=== PATIENT | male | born 1955 | race Caucasian/White ===

== ENCOUNTER 2017-08-25 07:57 | Day surgery (SDC) | payer OTHER ==
[2017-08-25] MEDS ORDERED: NA CHLORIDE 0.9% 1,000 ML ONE ×2 (08:13→10:58)
[2017-08-25] MEDS ORDERED: CEFAZOLIN/SWI 1gm 1 GM/10 ML SYR ONE (08:14)
[2017-08-25] MEDS ORDERED: BUPIVACAINE 0.5% Inj,MDV 50 mL VIAL ONE (08:21)
[2017-08-25 08:27] LABS: Absolute Lymphocytes (CBC) 1.1 K/uL (0.7-4.9); Absolute Monocytes 0.5 K/uL (0.1-1.3); Basophils % 0.5 % (0-1.3); Hematocrit 28.1 % (39.6-49.0); Lymphocytes % 16.1 % (15.3-44.8); MCH 28.4 pg (27.0-35.0); MCV 83.8 fL (80-100); MPV 7.1 fL (7.6-11.3); Monocytes % 6.8 % (3.3-12.3); RBC Red Blood Cell Count 3.35 M/uL (4.33-5.43)
--- NOTE | 2017-08-25 08:43 | RAD REPORT ---
EXAM DESCRIPTION: Elier Silva (2 Views)08/25/2017 8:34 am CLINICAL HISTORY: Hypertension/preop COMPARISON: None FINDINGS: The lungs appear clear of acute infiltrate. The heart is normal size IMPRESSION: No acute abnormalities displayed
[2017-08-25] MEDS ORDERED: MIDAZOLAM HCL 2 MG/2 ML INJ ONE (08:51)
[2017-08-25] MEDS ORDERED: PROPOFOL 200 MG/20 ML VIAL IV ONE (08:51)
[2017-08-25] MEDS ORDERED: FENTANYL CITR 100 MCG/2 ML ONE (08:51)
[2017-08-25] MEDS ORDERED: ONDANSETRON HCL 40 MG/20 ML VIAL ONE (09:30)
--- NOTE | 2017-08-25 10:03 | EKG ---
Test Date: 2017-08-25 Test Time: 08:03:51 Padded Products Finisher: ALF MEASUREMENT RESULTS: Intervals: Rate: 79 PA: 180 QRSD: 80 QT: 376 QTc: 431 [place]: P: 32 PA: 180 QRS: -6 T: 50 INTERPRETIVE STATEMENTS: Sinus rhythm with premature atrial complexes Otherwise normal ECG Compared to ECG 05/18/2017 13:48:43 Atrial premature complex(es) now present Sinus tachycardia no longer present Electronically Signed On 08-25-17 10:03:19 CDT by Malachi Padilla
[2017-08-25] MEDS: MEPERIDINE HCL 50 MG/ML AMP ONE ×4 (10:20→10:35)
[2017-08-25] MEDS: LABETALOL HCL 100 MG/20 ML ONE ×3 (10:30→10:50)
[2017-08-25 13:04] VITALS: O2SAT 100
[2017-08-25 13:38] VITALS: TEMP 97.1
--- NOTE | 2017-08-25 13:49 | RAD REPORT ---
EXAM DESCRIPTION: CT - Abdomen Pelvis W Contrast - 08/25/2017 1:22 pm CLINICAL HISTORY: Bilateral groin abscess, possible intraperitoneal extension COMPARISON: MRI and CT studies of the pelvis and right leg May 2017 TECHNIQUE: Biphasic, helical CT imaging of the abdomen and pelvis was performed following 100 ml non -ionic IV contrast. Oral contrast was given. All CT scans are performed using dose optimization technique as appropriate and may include automated exposure control or mA/KV adjustment according to patient size. FINDINGS: No suspicious findings in the lung bases. The liver, spleen, and pancreas show no focal findings. Liver shows a mild fatty infiltration pattern . No gallbladder or biliary tree abnormality. Symmetric renal function is seen with no hydronephrosis or suspicious renal mass. No pyelonephritis o r acute renal parenchymal process. A small 15 millimeter right adrenal mass is present. This is proba josue an incidental adenoma. This is unchanged over the short interval since May. No urinary bladd er abnormality. No dilated bowel loops or bowel wall thickening. No acute GI process identifiable. Prominence of the colon aranda at the hepatic flexure and ascending colon is believed to be from incomplete distention a nd peristalsis. Colitis or colon mass is not suspected. Within the peritoneal space there is no free air, free fluid or inflammatory stranding. No mass or b ulky lymphadenopathy. A very small fat only umbilical hernia is present. No suspicious bony findings. Fluid and inflammatory stranding is present. Postsurgical changes are noted from bilateral groin absc ess drainage. Each of the groin abscess is extend posteriorly and medially to abut the pubic symphysi s. There is fluid with a rim or rind at the pubic symphysis. Several small bone fragments are soft ti ssue calcifications present. No ashley destruction of the pubic symphysis though findings are concerni ng for early osteomyelitis. The medial musculature abutting the pubic symphysis region is mildly thic kened and edematous. No abscess extending into the upper thigh musculature. IMPRESSION: Bilateral groin abscesses are present with surgical drainage pathway to the skin surface . Each groin abscess extends posteriorly and medially where there is a confluent abscess 6 cm in diam eter at the anterior margin of the pubic symphysis. This appears to be a single v-shaped abscess drainable through either growing site The small bone fragments or mineralization at the pubic symphysis raises concern for early osteomyeli tis. The skeletal musculature inserting near the pubic symphysis show some edema change but no intramuscul ar abscess confirmed. No intraperitoneal or perineum extension of infectious/inflammatory process.
[2017-08-25] MEDS ORDERED: HYDROCODONE/APAP 7.5/325 MG TAB ONE (14:03)
[2017-08-25 14:36] VITALS: BP 160/81
--- NOTE | 2017-08-25 20:25 | OP ---
Date of Procedure: 08/25/2017 Surgeon: Tavares Bailey MD Preoperative Diagnosis: Bilateral groin infected wounds. Postoperative Diagnoses: Bilateral groin infected wounds, rule out intraperitoneal extension of the infection. Procedure Performed: Incision, drainage and debridement of the bilateral groin infected wounds. Estimated Blood Loss: Minimal. Specimen: Pus and necrotic tissue. Finding: On the left side of the groin, there appeared to be a deeper extension into the peritoneal cavity once I got through the infected tissue. At this point, I continued debridement; however, did not go any further without further diagnostic testing and we will get a CT scan of the abdomen and pe lvis after surgery. Anesthesia: General. Complications: None. Disposition: The patient tolerated the procedure in stable condition and taken to the Recovery in go od general condition. Procedure In Detail: The patient was brought to the OR and placed in the supine position. General a nesthesia begun. The patient was prepped and draped in the sterile fashion. Marcaine 0.5% was infil trated locally. A 15-blade was used to make 2 incisions approximately 6 x 4 cm each to cut out all o f the necrotic tissue that was present down through the subcutaneous tissue. There was pus encounter ed. Cultures were done. Necrotic tissue was debrided. On the left side of the groin, there was emelina e extension into the peritoneal cavity with cloudy straw-colored fluid. This was aspirated, did not extend into the peritoneal cavity at this time because I do not know the etiology of this fluid, ther efore I decided to irrigate the wound and stop the bleeding with cautery and then wet-to-dry normal s julianne. Dressing change was applied. The patient was awakened and taken to Recovery in good general condition. The patient will have a CT of the abdomen and pelvis after which I will decide whether th e patient will be cleared for discharge, but if he is, he will be discharged to home. Condition: Stable. Discharge Instructions: Resume home medications and diet. Activity as tolerated. No heavy lifting. Wet-to-dry normal saline dressing changes daily. Tylenol No. 3 one tablet p.o. q.4 p.r.n. pain, Ci pro 500 mg p.o. b.i.d. Follow up in my office in 2 weeks. Call for appointment. JEFF/VLAD Voice ID: [id number] Report ID: [id number]
== END 2017-08-25 15:00 | disposition home or self-care (01) ==
LOC: OR 07:57
PROVIDERS: ATTEND Surgery
PROC: 0J9C0ZZ Drainage of Pelvic Region Subcutaneous Tissue and Fascia, Open Approach (ICD-10-PCS; principal; 2017-08-25 09:00)
DX: E11.622 Type 2 diabetes mellitus with other skin ulcer (principal); L98.499 Non-pressure chronic ulcer of skin of other sites with unspecified severity; L02.214 Cutaneous abscess of groin; I10 Essential (primary) hypertension
CPT/HCPCS: 10061; 36415; 71046; 74177; 80048; 82962; 85025; 87070; 87075; 87077; 87186; 87205 ×2; 88304; 93005; J0690; J2175; J2250; J2405; J3010; J7030 ×2; Q9967; 88305

== ENCOUNTER 2018-02-09 08:09 | Day surgery (SDC) | payer OTHER ==
[2018-02-06 12:21] LABS: Absolute Lymphocytes (CBC) 1.4 K/uL (0.7-4.9); Absolute Monocytes 0.5 K/uL (0.1-1.3); Absolute Neutrophil 5.3 K/uL (1.8-8.0); Basophils % 0.5 % (0-1.3); Eosinophils % 5.7 % (0-4.4); Hematocrit 30.7 % (39.6-49.0); Lymphocytes % 18.7 % (15.3-44.8); MCV 86.6 fL (80-100); MPV 7.2 fL (7.6-11.3); Monocytes % 6.1 % (3.3-12.3); RBC Red Blood Cell Count 3.54 M/uL (4.33-5.43)
--- NOTE | 2018-02-06 12:29 | RAD REPORT ---
EXAM DESCRIPTION: RAD - Chest Pa And Lat (2 Views) - 02/06/2018 12:21 pm CLINICAL HISTORY: preop Chest pain. COMPARISON: Chest Pa And Lat (2 Views) dated 08/25/2017; Chest Single View dated 05/18/2017 FINDINGS: The lungs are clear. The heart is normal in size. Mildly tortuous thoracic aorta. Moderate thoracic degenerative changes. IMPRESSION: No acute or concerning finding suspected.
[2018-02-06 12:35] LABS: Phosphorus 3.9 mg/dL (2.5-4.9)
[2018-02-06 12:37] LABS: Potassium 4.4 mmol/L (3.5-5.1)
--- NOTE | 2018-02-06 15:19 | EKG ---
Test Date: 2018-02-06 Test Time: 13:01:43 Cash Shortage Investigator: ALF MEASUREMENT RESULTS: Intervals: Rate: 65 [place]: 184 QRSD: 76 QT: 406 QTc: 422 [place]: P: 39 OK: 184 QRS: 3 T: 51 INTERPRETIVE STATEMENTS: Normal sinus rhythm Low voltage QRS Borderline ECG Compared to ECG 08/25/2017 08:03:51 Low QRS voltage now present Atrial premature complex(es) no longer present Electronically Signed On 02-06-18 15:19:02 PRINCIPAL AUTOMATION ENGINEER by Link Wooten
[2018-02-09] MEDS ORDERED: CEFAZOLIN/SWI 1gm 1 GM/10 ML SYR ONE (08:35)
[2018-02-09] MEDS ORDERED: NA CHLORIDE 0.9% 1,000 ML ONE (08:35)
[2018-02-09] MEDS ORDERED: PROPOFOL 200 MG/20 ML VIAL IV ONE (08:48)
[2018-02-09] MEDS ORDERED: FENTANYL CITR 100 MCG/2 ML ONE ×2 (08:49→09:19)
[2018-02-09] MEDS ORDERED: MIDAZOLAM HCL 2 MG/2 ML INJ ONE (08:49)
[2018-02-09] MEDS ORDERED: LIDOCAINE 2% MPF 5 ML VIAL ONE (08:49)
[2018-02-09] MEDS ORDERED: ONDANSETRON HCL 40 MG/20 ML VIAL ONE (08:51)
[2018-02-09 10:29] VITALS: TEMP 97.4; O2SAT 99
[2018-02-09 13:41] VITALS: BP 155/87
--- NOTE | 2018-02-09 14:12 | OP ---
Date of Procedure: 11/12/2017 Surgeon: Tavares Bailey MD Preoperative Diagnosis: Nonhealing wounds, pelvis and groin x2. Postoperative Diagnosis: Nonhealing wounds, pelvis and groin x2. Procedures Performed: Debridement of nonhealing wound, 10 x 15 cm to subcutaneous tissue in pelvis a nd groin. Estimated Blood Loss: Minimal. Specimen: Debrided tissue for culture and sensitivity. Findings: As above. Anesthesia: General. Complications: None. Disposition: The patient tolerated the procedure in stable condition and was taken to Recovery in go od general condition. Procedure In Detail: The patient was brought to the OR and placed in the supine position. General a nesthesia begun. The patient was prepped and draped in usual sterile fashion. The patient had 2 ope nings that were approximately 2 cm in diameter, and it was not healing and the wound was probed under anesthesia. Marcaine 0.5% was infiltrated locally, and there used to be a tunnel which connected th e 2 wounds, so approximately a 10 x 15 cm incision was made to excise around the nonhealing wound. S ubcutaneous tissue divided and then the 2 wounds connected by themselves. There was lots of granulat ion tissue, which was debrided with a curette. Wound was irrigated. Bleeding controlled with cauter y, and then a wet-to-dry normal saline dressing change applied. The patient tolerated the procedure in stable condition taken to Recovery i n good general condition. JEFF/VLAD Voice ID: [id number] Report ID: [id number]
--- NOTE | 2018-02-09 14:18 | DS ---
Date of Discharge: 02/09/2018 Discharge Note: The patient will go to Day Surgery and home when stable. Disposition: Home. Condition: Stable. Discharge Instructions: Resume home medications and diet. Activity as tolerated. No heavy lifting. Wound VAC Tuesday, Tuesday, and Tuesday. Tylenol No. 3 one tablet p.o. q.4h. p.r.n. pain, Keflex 5 00 mg p.o. q.6. Follow up wound healing center in 1 week. JEFF/VLAD Voice ID: [id number] Report ID: [id number]
== END 2018-02-09 11:50 | disposition home or self-care (01) ==
LOC: OR 08:09
PROVIDERS: ATTEND Surgery
PROC: 0JDC0ZZ Extraction of Pelvic Region Subcutaneous Tissue and Fascia, Open Approach (ICD-10-PCS; principal; 2018-02-09 09:00)
DX: T81.89XA Other complications of procedures, not elsewhere classified, initial encounter (principal); E11.9 Type 2 diabetes mellitus without complications; I10 Essential (primary) hypertension; N17.9 Acute kidney failure, unspecified
CPT/HCPCS: 11042; 11045 ×7; 36415; 71046; 80048; 82962 ×2; 83735; 84100; 85025; 87070; 87077; 87176; 87186; 87205; 93005; J0690; J2250; J2405; J2704; J3010 ×2; J7030

== ENCOUNTER → 2019-04-10 | Day surgery (SDC) | payer OTHER ==
[~2019-04-10] MED LIST: CEFAZOLIN/SWI 1gm 1 GM/10 ML SYR ONE; FENTANYL CITR 100 MCG/2 ML ONE; HYDROCODONE/APAP 7.5/325 MG TAB ONE; HYDROCODONE/APAP 7.5/325 MG TAB PO ONE; INSULIN -REGULAR HUMAN 50 UNIT/0.5 ML ML ONE; KETOROLAC 30 MG/ML INJ ONE; LIDOCAINE 1% MPF 5 ML VIAL ONE; NA CHLORIDE 0.9% 1,000 ML ONE; ONDANSETRON 4 MG/2 ML VIAL ONE; propofoL 200 MG/20 ML VIAL IV ONE
[2019-04-10 09:06] LABS: Absolute Lymphocytes (CBC) 1.1 K/uL (0.7-4.9); Basophils % 0.6 % (0-1.3); Hematocrit 37.9 % (39.6-49.0); Lymphocytes % 16.6 % (15.3-44.8); MPV 8.7 fL (7.6-11.3); RBC Red Blood Cell Count 4.05 M/uL (4.33-5.43)
--- NOTE | 2019-04-10 09:23 | RAD REPORT ---
EXAM DESCRIPTION: Elier Silva (2 Views)04/10/2019 9:04 am CLINICAL HISTORY: Preop for knee surgery COMPARISON: 2018 FINDINGS: The lungs appear clear of acute infiltrate. The heart is normal size IMPRESSION: No acute abnormalities displayed
[2019-04-10 09:36] LABS: Potassium 4.2 mmol/L (3.5-5.1)
[2019-04-10 13:41] VITALS: BP 124/80; TEMP 98; O2SAT 98
--- NOTE | 2019-04-10 16:40 | EKG ---
Test Date: 2019-04-10 Test Time: 10:09:25 Main Galley Scullion: LENNIE MEASUREMENT RESULTS: Intervals: Rate: 82 [place]: 194 QRSD: 90 QT: 380 QTc: 443 [place]: P: 47 [place]: 194 QRS: 2 T: 46 INTERPRETIVE STATEMENTS: Normal sinus rhythm Normal ECG Compared to ECG 02/06/2018 13:01:43 No significant changes Electronically Signed On 04-10-19 16:39:56 RN REHABILITATION by Malachi Padilla
--- NOTE | 2019-04-10 20:52 | DS ---
Patient will to Day Surgery and home when stable. Disposition: Home. Condition: Stable. Discharge Instructions: Resume home medications and diet. Activity as tolerated. No heavy lifting. Wet-to-dry normal saline dressing changes daily. Cipro 500 mg p.o. q.12, Tylenol No. 3 one tablet p.o. q.4 p.r.n. pain. Follow up in [facility]. JEFF/VLAD Voice ID: [id number] Report ID: [id number]
--- NOTE | 2019-04-10 20:52 | OP ---
Date of Procedure: 04/10/2019 Surgeon: Tavares Bailey MD Preoperative Diagnosis: Infected wound, right thigh. Postoperative Diagnosis: Infected wound, right thigh. Procedure: Excisional debridement, right thigh and infected wound, 5 x 3 cm to subcutaneous tissue. Estimated Blood Loss: Minimal. Specimen: Pus and infected tissue. Finding: As above. Anesthesia: General. Complications: None. Disposition: Patient tolerated the procedure in stable condition and taken to Recovery in good gener al condition. Description Of Procedure: Patient was brought to the OR and placed in supine position. General anes thesia was begun. Patient was prepped and draped in usual sterile fashion. Marcaine 0.5% was infilt rated locally. A 15-blade was used to make a 5 x 3 cm incision on the infected wound on the medial t high. Cultures were done. The entire excision proceeded down through the subcutaneous tissue where healthy tissue was present. Subcutaneous wounds were irrigated. Bleeding was controlled cautery. W et-to-dry normal saline dressing change applied. Patient tolerated the procedure in stable condition and taken to Recovery in good general condition. JEFF/MODL Voice ID: [id number] Report ID: [id number]
== END ==
LOC: OR 08:38
PROVIDERS: ATTEND Surgery
PROC: 0JBL0ZZ Excision of Right Upper Leg Subcutaneous Tissue and Fascia, Open Approach (ICD-10-PCS; principal; 2019-04-10 10:15)
DX: S71.101A Unspecified open wound, right thigh, initial encounter (principal); L08.9 Local infection of the skin and subcutaneous tissue, unspecified
CPT/HCPCS: 36415; 71046; 80048; 82947; 85025; 87070; 87075; 87077; 87186; 87205; 88304; 93005; J0690; J2405; J2704; J3010; J7030